=== PATIENT | male | born 1955 | race Caucasian/White ===

== ENCOUNTER 2022-01-21 10:50 | Emergency (ER) | payer OTHER ==
[~2022-01-21] VITALS: Ht 172.7 cm; Wt 72.6 kg
[2022-01-21 10:55] VITALS: BP 122/86
--- NOTE | 2022-01-21 11:05 | ED General ---
General Chief Complaint: Medical Screening Exam Stated Complaint: MED CLEARANCE History of Present Illness Date Seen by Provider: Jan 21, 2022 Time Seen by Provider: 11:02 Initial Comments 66-year-old male brought in for medical clearance. Patient has multiple medical complaints and was arrested on a felony warrant. Patient is on home oxygen. He has actually no complaints himself. Allergies and Home Medications Patient Home Medication List Home Medication List Reviewed: Yes Review of Systems Review of Systems Constitutional: no symptoms reported EENTM: no symptoms reported Respiratory: no symptoms reported Cardiovascular: no symptoms reported Gastrointestinal: no symptoms reported Genitourinary: no symptoms reported Musculoskeletal: no symptoms reported Skin: no symptoms reported Psychiatric/Neurological: No Symptoms Reported Hematologic/Lymphatic: No Symptoms Reported Physical Exam Vital Signs Capillary Refill : Height, Weight, BMI Height: '" Weight: lbs. oz. kg; BMI Method: General Appearance: No Apparent Distress, WD/WN HEENT: PERRL/EOMI Respiratory: Lungs Clear, Normal Breath Sounds Cardiovascular: Regular Rate, Rhythm, No Edema Neurologic/Psychiatric: Alert, Oriented x3, Normal Mood/Affect Progress/Results/Core Measures Suspected Sepsis SIRS Temperature: Pulse: Respiratory Rate: Blood Pressure / Mean: Results/Orders Vital Signs/I&O Capillary Refill : Progress Note : Progress Note Patient with multiple chronic medical conditions and on home oxygen. However since they do have the ability to care for patient with nursing staff and medical staff at custodial there is no reason for him not to be cleared for incarceration. Patient discharged with the psychiatric Departure Impression Primary Impression: Medical clearance for incarceration Disposition: 21 DIS/[address]/LAW ENFORCE Condition: Stable Departure-Patient Inst. Referrals: NO,LOCAL PHYSICIAN (PCP/Family) Primary Care Physician Patient Instructions: NO INSTRUCTIONS GIVEN Add. Discharge Instructions: Patient cleared for incarceration, please provide him with his medications and oxygen per policy All discharge instructions reviewed with patient and/or family. Voiced understanding. BAO PASTOR DO Jan 21, 2022 11:05
== END 2022-01-21 11:20 ==
LOC: EDUNIT# 10:50 → ER FS 10:52
CPT/HCPCS: 99281

== ENCOUNTER 2022-11-12 10:50 | Emergency (ER) | payer MEDICARE, OTHER ==
[~2022-11-12] VITALS: Ht 182.9 cm; Wt 95.0 kg
--- NOTE | 2022-11-12 10:52 | ED Dyspnea ---
General Stated Complaint: SOB History of Present Illness Date Seen by Provider: Nov 12, 2022 Time Seen by Provider: 10:52 Initial Comments 67-year-old male with PMH of COPD on 3 L of home oxygen/HTN/A-fib on blood thinner/discharged from [facility] yesterday for pneumonia, and currently on cefdinir, is brought in by EMS with complaints of shortness of breath which developed today morning and has been worsening. Patient was given a DuoNeb by EMS in route and states he feels a little bit better after getting the treatme nt. Patient states that he has been having cough with sputum production which has not been improving since he was discharged from the hospital. Denies fever and chills, chest pain, palpitations, abdominal pain, nausea and vomiting, diarrhea. Also oxygen requirements are more than usual, patient is able to speak in clear sentences without any difficulty. Allergies and Home Medications Allergies Coded Allergies: Penicillins (Verified Allergy, Unknown, 01/21/22) codeine (Verified Allergy, Unknown, 01/21/22) Patient Home Medication List Home Medication List Reviewed: Yes Review of Systems Review of Systems Constitutional: no symptoms reported EENTM: no symptoms reported Respiratory: see HPI, cough, short of breath, wheezing Cardiovascular: no symptoms reported Gastrointestinal: no symptoms reported Genitourinary: no symptoms reported Musculoskeletal: no symptoms reported Skin: no symptoms reported Psychiatric/Neurological: No Symptoms Reported Endocrine: No Symptoms Reported Past [id number] Hx Past Medical History Surgery/Hospitalization HX: atrial fibrillation, COPD, HTN, anxiety Physical Exam Vital Signs Vital Signs - First Documented 11/12/22 10:59 Temp 37.3 Pulse 98 Resp 26 B/P (MAP) 154/85 (108) Pulse Ox 94 O2 Delivery Nasal Cannula O2 Flow Rate 4.00 Capillary Refill : Height, Weight, BMI Height: '" Weight: lbs. oz. kg; 24.00 BMI Method: General Appearance: Mild Distress HEENT: PERRL/EOMI, Normal ENT Inspection, Pharynx Normal Neck: Full Range of Motion, Non Tender Respiratory: Chest Non Tender, No Accessory Muscle Use, Rhonci, Wheezing Cardiovascular: Regular Rate, Rhythm, No Edema Gastrointestinal: Normal Bowel Sounds, Non Tender, Soft Neurologic/Psychiatric: Alert, Oriented x3, No Motor/Sensory Deficits Skin: Normal Color Focused Exam Lactate Level 11/12/22 10:50: Lactic Acid Level 0.80 Lactic Acid Level Laboratory Tests Test 11/12/22 10:50 Lactic Acid Level 0.80 MMOL/L (0.50-2.00) Progress/Results/Core Measures Results/Orders Lab Results Laboratory Tests Test 11/12/22 10:50 11/12/22 11:08 Range/Units White Blood Count 11.3 H 4.3-11.0 10^3/uL Red Blood Count 3.60 L 4.30-5.52 10^6/uL Hemoglobin 11.4 L 13.3-17.7 g/dL Hematocrit 37 L 40-54 % Mean Corpuscular Volume 102 H 80-99 fL Mean Corpuscular Hemoglobin 32 25-34 pg Mean Corpuscular Hemoglobin Concent 31 L 32-36 g/dL Red Cell Distribution Width 14.4 10.0-14.5 % Platelet Count 227 130-400 10^3/uL Mean Platelet Volume 11.0 9.0-12.2 fL Immature Granulocyte % (Auto) 1 % Neutrophils (%) (Auto) 72 42-75 % Lymphocytes (%) (Auto) 17 12-44 % Monocytes (%) (Auto) 8 0-12 % Eosinophils (%) (Auto) 2 0-10 % Basophils (%) (Auto) 1 0-10 % Neutrophils # (Auto) 8.2 H 1.8-7.8 10^3/uL Lymphocytes # (Auto) 1.9 1.0-4.0 10^3/uL Monocytes # (Auto) 0.9 0.0-1.0 10^3/uL Eosinophils # (Auto) 0.2 0.0-0.3 10^3/uL Basophils # (Auto) 0.1 0.0-0.1 10^3/uL Immature Granulocyte # (Auto) 0.1 0.0-0.1 10^3/uL Prothrombin Time 14.4 12.2-14.7 SEC INR Comment 1.1 0.8-1.4 Activated Partial Thromboplast Time 35 24-35 SEC D-Dimer 0.39 0.00-0.49 UG/ML Sodium Level 140 135-145 MMOL/L Potassium Level 4.3 3.6-5.0 MMOL/L Chloride Level 97 L 98-107 MMOL/L Carbon Dioxide Level 36 H 21-32 MMOL/L Anion Gap 7 5-14 MMOL/L Blood Urea Nitrogen 16 7-18 MG/DL Creatinine 0.86 0.60-1.30 MG/DL Estimat Glomerular Filtration Rate 96 BUN/Creatinine Ratio 19 Glucose Level 97 70-105 MG/DL Lactic Acid Level 0.80 0.50-2.00 MMOL/L Calcium Level 8.9 8.5-10.1 MG/DL Corrected Calcium 9.5 8.5-10.1 MG/DL Total Bilirubin 0.5 0.1-1.0 MG/DL Aspartate Amino Transf (AST/SGOT) 14 5-34 U/L Alanine Aminotransferase (ALT/SGPT) 10 0-55 U/L Alkaline Phosphatase 91 40-136 U/L Troponin I < 0.30 <0.30 NG/ML Pro-B-Type Natriuretic Peptide 1893.0 H <125.0 PG/ML Total Protein 5.7 L 6.4-8.2 GM/DL Albumin 3.3 3.2-4.5 GM/DL Influenza Type A (RT-PCR) Not Detected Not Detecte Influenza Type B (RT-PCR) Not Detected Not Detecte SARS-CoV-2 RNA (RT-PCR) Not Detected Not Detecte My Orders Orders - PAULA MARAVILLA MD Chest 1 View Ap/Pa Only (11/12/22 10:52) Cbc With Automated Diff (11/12/22 10:52) Comprehensive Metabolic Panel (11/12/22 10:52) Fibrin Degradation Products (11/12/22 10:52) Drug Screen Stat (Urine) (11/12/22 10:52) Lactic Acid Analyzer (11/12/22 10:52) Protime With Inr (11/12/22 10:52) Partial Thromboplastin Time (11/12/22 10:52) Ua Culture If Indicated (11/12/22 10:52) Blood Culture (11/12/22 10:52) Influenza A And B By Pcr (11/12/22 10:52) Sputum Culture (11/12/22 10:52) Probnp Fs (11/12/22 10:52) Troponin I Fs (11/12/22 10:52) Covid 19 Inhouse Test (11/12/22 10:54) Ipratropium/Albuterol Inh Soln (Ipratrop (11/12/22 11:00) Methylprednisolone Sod Succ (Methylpredn (11/12/22 10:54) Svn Small Volume Nebulizer (11/12/22 10:54) Ipratropium/Albuterol Inh Soln (Ipratrop (11/12/22 12:00) Svn Small Volume Nebulizer (11/12/22 11:47) Cefepime Injection (Cefepime Injection) (11/12/22 12:00) Diazepam Tablet (Diazepam Tablet) (11/12/22 12:15) Medications Given in ED Current Medications Medications Dose Ordered Sig/Hallie Route Start Time Stop Time Status Last Admin Dose Admin Albuterol/ Ipratropium 3 ml ONCE ONCE INH 11/12/22 11:00 11/12/22 11:01 DC 11/12/22 11:03 3 ML Albuterol/ Ipratropium 3 ml ONCE ONCE INH 11/12/22 12:00 11/12/22 12:01 DC 11/12/22 12:30 3 ML Cefepime HCl 1000 mg/Sodium Chloride 50 ml @ 100 mls/hr ONCE ONCE IV 11/12/22 12:00 11/12/22 12:29 DC 11/12/22 12:30 100 MLS/HR Diazepam 5 mg ONCE ONCE PO 11/12/22 12:15 11/12/22 12:16 DC 11/12/22 12:30 5 MG Vital Signs/I&O 11/12/22 11/12/22 11/12/22 10:59 11:08 11:12 Temp 37.3 Pulse 98 Resp 26 B/P (MAP) 154/85 (108) Pulse Ox 94 94 O2 Delivery Nasal Cannula Nasal Cannula Nasal Cannula O2 Flow Rate 4.00 4.00 4.00 Progress Progress Note : Progress Note 1. RIGHT BASILAR PNEUMONIA & ACUTE COPD EXACERBATION: - CXR: Right basilar consolidation and small loculated right pleural effusion. - COVID test/ Rapid Flu test: negative - CBC:WBC is 11.3 - CMP: unremarkable - Lactic acid: normal - D-dimer: normal - BNP: 1,893 - Troponin: undetectable - Blood cultures sent - 1st Duo neb given by EMS en route to ER, 2nd Duo neb in ER - Solumedrol 125mg iv STAT - Cefepime 1gm iv in ER -Patient was just discharged from [facility] yesterday for pneumonia and was given a prescription for cefdinir. Patient is normally on 3 L of oxygen, but currently on 4 L of oxygen and satting at 97%. -Patient is requesting to go to [facility] since he was just discharged from there yesterday. Discussed with hospitalist at [facility] and accepted for admission Diagnostic Imaging Diagonstic Imaging: Xray Plain Films/CT/US/NM/MRI: chest Comments [facility], [place] NAME: MOODY EDGAR [facility] REC#: [id number] PT STATUS: REG ER : 1955 PHYSICIAN: PAULA MARAVILLA MD ADMIT DATE: 11/12/22/ER FS Draft Date of Exam:11/12/22 CHEST 1 VIEW AP/PA ONLY INDICATION: Shortness of breath. No prior examinations are available for comparison. FINDINGS: The heart size is normal. There is some right basilar atelectasis and/or pneumonitis and a loculated right pleural effusion. There is no pneumothorax. The mediastinum is unremarkable. There is a calcified granuloma in the left upper lobe. A loop recorder overlies the left chest. IMPRESSION: Right basilar consolidation and small loculated right pleural effusion. Dictated on workstation # [id number] Dict: 11/12/22 1104 Trans: 11/12/22 1112 JOSÉ LUIS [id number] Interpreted by: KATALINA COLES MD Electronically signed by: Departure Impression Primary Impression: Acute exacerbation of chronic obstructive pulmonary disease (COPD) Additional Impressions: Right lower lobe consolidation CAP (community acquired pneumonia) Qualified Codes: J18.9 - Pneumonia, unspecified organism Disposition: XFER SHT-TRM HOSP Condition: Stable Admissions Decision to Admit/Date: Nov 12, 2022 Time/Decision to Admit Time: 11:20 Transfer [facility] Medically Cleared for Xfer: Yes Transfer Reason: Patient preference Time Spoke to Accepting Phy: 12:20 Transfer Progress Notes Patient excepted by Dr. Floyd, hospitalist, for transfer to [facility] Transfer Facility: [facility] Method of Transfer: EMS Departure-Patient Inst. Referrals: NO,LOCAL PHYSICIAN (PCP/Family) Primary Care Physician PAULA MARAVILLA MD Nov 12, 2022 10:52
[2022-11-12] MEDS ORDERED: methylPREDNISolone INJ 125 MG VIAL IV STA (10:54)
[2022-11-12] MEDS ORDERED: RT-Ipratropium/Albuterol NEB 3 ML VIAL INH ONE ×2 (11:00→12:00)
--- NOTE | 2022-11-12 11:12 | Diagnostic Imaging Report ---
INDICATION: Shortness of breath. No prior examinations are available for comparison. FINDINGS: The heart size is normal. There is some right basilar atelectasis and/or pneumonitis and a loculated right pleural effusion. There is no pneumothorax. The mediastinum is unremarkable. There is a calcified granuloma in the left upper lobe. A loop recorder overlies the left chest. IMPRESSION: Right basilar consolidation and small loculated right pleural effusion. Dictated by: Dictated on workstation # [id number]
[2022-11-12 11:14] LABS: BASOPHILS # (AUTO) 0.1 10^3/uL (0.0-0.1); BASOPHILS % (AUTO) 1 % (0-10); EOSINOPHILS # (AUTO) 0.2 10^3/uL (0.0-0.3); EOSINOPHILS % (AUTO) 2 % (0-10); HEMATOCRIT 37 % (40-54); HEMOGLOBIN 11.4 g/dL (13.3-17.7); LYMPHOCYTES # (AUTO) 1.9 10^3/uL (1.0-4.0); LYMPHOCYTES % (AUTO) 17 % (12-44); MEAN CORPUSCULAR HEMOGLOBIN 32 pg (25-34); MEAN CORPUSCULAR HGB CONC 31 g/dL (32-36); MEAN CORPUSCULAR VOLUME 102 fL (80-99); MONOCYTES # (AUTO) 0.9 10^3/uL (0.0-1.0); MONOCYTES % (AUTO) 8 % (0-12); NEUTROPHILS # (AUTO) 8.2 10^3/uL (1.8-7.8); NEUTROPHILS % (AUTO) 72 % (42-75); PLATELET COUNT 227 10^3/uL (130-400); WHITE BLOOD COUNT 11.3 10^3/uL (4.3-11.0)
[2022-11-12 11:44] LABS: FIBRIN DEGRADATION PRODUCTS 0.39 UG/ML (0.00-0.49); INR 1.1 (0.8-1.4); PROTHROMBIN TIME PATIENT 14.4 SEC (12.2-14.7)
[2022-11-12 11:45] LABS: ALKALINE PHOSPHATASE 91 U/L (40-136); BILIRUBIN,TOTAL 0.5 MG/DL (0.1-1.0); BUN/CREATININE RATIO 19; CALCIUM 8.9 MG/DL (8.5-10.1); CARBON DIOXIDE 36 MMOL/L (21-32); CHLORIDE 97 MMOL/L (98-107); CREATININE SERUM 0.86 MG/DL (0.60-1.30); GFR ESTIMATED 96; GLUCOSE 97 MG/DL (70-105); POTASSIUM 4.3 MMOL/L (3.6-5.0); SODIUM 140 MMOL/L (135-145)
[2022-11-12 11:46] LABS: ALANINE AMINOTRANSFERASE 10 U/L (0-55); ALBUMIN 3.3 GM/DL (3.2-4.5); TOTAL PROTEIN 5.7 GM/DL (6.4-8.2)
[2022-11-12] MEDS ORDERED: CEFEPIME INJECTION 1,000 MG in NS (IVPB) 50 ML 50 ML IV ONE (12:00)
[2022-11-12] MEDS ORDERED: diazePAM 5 MG TABLET PO ONE (12:15)
[2022-11-12 18:40] VITALS: BP 127/72
== END 2022-11-12 18:45 | disposition short-term general hospital (02) ==
LOC: EDUNIT# 10:50 → ER FS 10:51
DX: J44.1 Chronic obstructive pulmonary disease with (acute) exacerbation (principal); J18.1 Lobar pneumonia, unspecified organism; I48.91 Unspecified atrial fibrillation; Z99.81 Dependence on supplemental oxygen; Z20.822 Contact with and (suspected) exposure to COVID-19; Z79.01 Long term (current) use of anticoagulants
CPT/HCPCS: 36415; 71045; 80053; 83605; 83880; 84484; 85025; 85379; 85610; 85730; 87040; 87070; 87077; 87205; 87636; 94640; 96365; 96375